=== PATIENT | female | born 1990 | race Caucasian/White ===

== ENCOUNTER 2017-07-28 23:00 | Emergency (ER) | payer OTHER ==
[~2017-07-28] VITALS: Ht 170.2 cm; Wt 125.0 kg
[~2017-07-28 23:00] MED LIST: INSPI INH; MEDR4PAK3 PO; VENTAER INH; Z.0.NO CURRENT MEDS
[2017-07-28 23:06] VITALS: BP 147/85; PULSE 103; RESP 16; TEMP 98.4; O2SAT 100
[2017-07-29 00:32] VITALS: BP 138/72; PULSE 84; RESP 16; O2SAT 97
--- NOTE | 2017-07-29 00:42 | PD ---
HPI Chief Complaint: Chest Pain Time Seen by Provider: 00:42 Travel History International Travel<30 days: No Contact w/Intl Traveler<30days: No Traveled to known affect area: No History of Present Illness HPI 26-year-old female came to the emergency room with history of substernal chest pain that started at 8:30 PM. Patient says the pain is 7 out of 10 and starts at her subxiphoid and goes up to the mid sternum. Laying back makes the pain worse. She vomited couple times. Patient had dinner earlier in the pain started after that. She says she had similar pain about 3 days ago but it lasted for much shorter time and hence she did not come to the emergency room then. Been getting this pain on and off for past 6 months. No radiation of the pain anywhere else. Her vital signs were relatively stable. She is not a smoker. No recent travel history. No past history of DVT or PEs. PFSH Past Medical History Narrative Medical List of her past medical, surgical, social and family history is reviewed from the nursing note. Arthritis: No Asthma: Yes (HX OF WHEN YOUNGER) Autoimmune Disease: No Blood Disorders: No Anxiety: No Depression: No Cancer: No Cardiovascular Problems: Yes High Cholesterol: No Chest Pain: No Congestive Heart Failure: No COPD: No Cerebrovascular Accident: No Diabetes: No Diminished Hearing: No Endocrine: No GERD: No Genitourinary: Yes Headaches: Yes (SEVERE EVERY 2 TO 3 MONTHS) Hepatitis: No Hiatal Hernia: No Hypertension: No Immune Disorder: No Kidney Stones: No Musculoskeletal: Yes Neurologic: Yes Psychiatric: No Reproductive: No Respiratory: Yes Migraines: No Myocardial Infarction: No Renal Failure: No Seizures: Yes (UNKNOWN, ADMITTED 10/21/08 POSSIBLE SEIZURE) Sickle Cell Disease: No Sleep Apnea: No Thyroid Disease: No Ulcer: No ?: Not LMP: 07/14/17 : 0 Para: 0 Past Surgical History Surgical History: No Previous Surgery AICD: No Appendectomy: No Arteriovenous Shunt: No Cardiac Surgery: No Cholecystectomy: No Ear Surgery: No Endocrine Surgery: No Eye Surgery: No Genitourinary Surgery: No Gynecologic Surgery: No Insulin Pump: No Joint Replacement: No Oral Surgery: No Pacemaker: No Thoracic Surgery: No Family History Narrative Family History Mother's to sisters had gallstones at about patient's age. Social History Alcohol Use: No Tobacco Use: No Substance Use: No Allergies-Medications (Allergen,Severity, Reaction): Coded Allergies: No Known Allergies (Verified Adverse Reaction, Unknown, 07/29/17) Comments No known drug allergies. Reported Meds & Prescriptions Reported Meds & Active Scripts Active Protonix (Pantoprazole Sodium) 20 Mg Tab 20 Mg PO DAILY Narrative Medication List of her home medications reviewed from the nursing note. Review of Systems Except as stated in HPI: all other systems reviewed are Neg Cardiovascular: Positive: Chest Pain or Discomfort Physical Exam Narrative GENERAL: Awake, alert, morbidly obese, mild distress SKIN: Focused skin assessment warm/dry. HEAD: Atraumatic. Normocephalic. EYES: Pupils equal and round. No scleral icterus. No injection or drainage. ENT: No nasal bleeding or discharge. Mucous membranes pink and moist. NECK: Trachea midline. No JVD. CARDIOVASCULAR: Regular rate and rhythm. No murmur appreciated. RESPIRATORY: No accessory muscle use. Clear to auscultation. Breath sounds equal bilaterally. GASTROINTESTINAL: Abdomen soft, non-tender, nondistended. Hepatic and splenic margins not palpable. MUSCULOSKELETAL: No obvious deformities. No clubbing. No cyanosis. No edema. NEUROLOGICAL: Awake and alert. No obvious cranial nerve deficits. Motor grossly within normal limits. Normal speech. PSYCHIATRIC: Appropriate mood and affect; insight and judgment normal. Data Data Last Documented VS Orders Orders Electrocardiogram (07/28/17 ) Complete Blood Count With Diff (07/29/17 00:48) Comprehensive Metabolic Panel (07/29/17 00:48) Lipase (07/29/17 00:48) Urinalysis - C+S If Indicated (07/29/17 00:48) Iv Access Insert/Monitor (07/29/17 00:48) Ecg Monitoring (07/29/17 00:48) Oximetry (07/29/17 00:48) Morphine Inj (Morphine Inj) (07/29/17 01:00) Ondansetron Inj (Zofran Inj) (07/29/17 01:00) Sodium Chlor 0.9% 1000 Ml Inj (Ns 1000 M (07/29/17 00:48) Sodium Chloride 0.9% Flush (Ns Flush) (07/29/17 01:00) Ed Poc Ultrasound (07/29/17 00:48) Troponin I (07/29/17 00:48) Pantoprazole (Protonix) (07/29/17 01:00) Us Abdomen Gallbladder (07/29/17 ) Ed Discharge Order (07/29/17 03:06) Labs Laboratory Tests Test 07/29/17 01:05 07/29/17 01:07 White Blood Count 11.5 TH/MM3 Red Blood Count 4.60 MIL/MM3 Hemoglobin 12.0 GM/DL Hematocrit 37.2 % Mean Corpuscular Volume 80.8 FL Mean Corpuscular Hemoglobin 26.0 PG Mean Corpuscular Hemoglobin Concent 32.2 % Red Cell Distribution Width 14.3 % Platelet Count 329 TH/MM3 Mean Platelet Volume 8.0 FL Neutrophils (%) (Auto) 81.3 % Lymphocytes (%) (Auto) 11.0 % Monocytes (%) (Auto) 6.3 % Eosinophils (%) (Auto) 1.0 % Basophils (%) (Auto) 0.4 % Neutrophils # (Auto) 9.4 TH/MM3 Lymphocytes # (Auto) 1.3 TH/MM3 Monocytes # (Auto) 0.7 TH/MM3 Eosinophils # (Auto) 0.1 TH/MM3 Basophils # (Auto) 0.0 TH/MM3 CBC Comment DIFF FINAL Differential Comment Blood Urea Nitrogen 9 MG/DL Creatinine 0.78 MG/DL Random Glucose 121 MG/DL Total Protein 7.8 GM/DL Albumin 3.6 GM/DL Calcium Level 9.0 MG/DL Alkaline Phosphatase 124 U/L Aspartate Amino Transf (AST/SGOT) 94 U/L Alanine Aminotransferase (ALT/SGPT) 72 U/L Total Bilirubin 0.5 MG/DL Sodium Level 139 MEQ/L Potassium Level 4.7 MEQ/L Chloride Level 104 MEQ/L Carbon Dioxide Level 26.8 MEQ/L Anion Gap 8 MEQ/L Estimat Glomerular Filtration Rate 89 ML/MIN Troponin I LESS THAN 0.02 NG/ML Lipase 100 U/L Urine Color YELLOW Urine Turbidity HAZY Urine pH 7.0 Urine Specific Isabella 1.021 Urine Protein TRACE mg/dL Urine Glucose (UA) NEG mg/dL Urine Ketones NEG mg/dL Urine Occult Blood NEG Urine Nitrite NEG Urine Bilirubin NEG Urine Urobilinogen LESS THAN 2.0 MG/DL Urine Leukocyte Esterase SMALL Urine RBC 6 /hpf Urine WBC 6 /hpf Urine Squamous Epithelial Cells 3 /hpf Urine Mucus FEW /lpf Microscopic Urinalysis Comment CULT NOT INDICATED MDM Medical Decision Making Medical Screen Exam Complete: Yes Emergency Medical Condition: Yes Medical Record Reviewed: Yes Interpretation(s) Twelve-lead EKG was reviewed by me. Normal sinus rhythm, normal axis, nonspecific ST-T wave changes. Heart rate of 83 bpm. Differential Diagnosis Acute cholecystitis, acute gastritis,, ACS, nonspecific chest pain Narrative Course 1:34 AM awaiting for blood test results. Awaiting for the chest x-ray. Bedside ultrasound was negative for cholelithiasis. Patient is medicated for pain. 3:06 AM blood test results came back and patient's LFTs were somewhat elevated. Based on this I ordered a formal ultrasound of her gallbladder and liver. The ultrasound report is back and is normal. At this point I'll discharge her home. Patient will go home with a prescription for omeprazole. Procedures Procedure Narrative Emergency department right upper quadrant ultrasound was performed with patient consent. Curvilinear probe was used in the transverse and sagittal views within the right upper quadrant revealing gallbladder without obvious wall thickening, cholecystic fluid, or cholelithiasis. EKG Prior to Arrival: No Diagnosis Primary Impression: Acute gastritis Qualified Codes: K29.00 - Acute gastritis without bleeding Additional Impression: Elevated LFTs Referrals: Primary Care Physician Additional Instructions: You should find a primary care for yourselves and follow-up with them. Do not eat food that is high in acid content. Refrain from taking Tylenol-based medications since your liver function is not 100% normal. Your primary care should repeat the liver function test in another 3-4 weeks. Return to the ER if the condition worsens or any other new concerns. Med/Other Pt SpecificInfo: Prescription(s) given Scripts Pantoprazole (Protonix) 20 Mg Tab 20 MG PO DAILY for Reflux, #30 TAB 0 Refills Prov: Scooter Méndez MD 07/29/17 Disposition: 01 DISCHARGE HOME Condition: Stable Scooter Méndez MD Jul 29, 2017 00:42
[2017-07-29] MEDS ORDERED: SODIUM CHLOR 0.9% 1000 ML INJ 1,000 ML IV SCH (00:48)
[2017-07-29] MEDS ORDERED: SODIUM CHLORIDE 0.9% FLUSH 10 ML FLUSH IV FLUSH PRN (01:00)
[2017-07-29] MEDS ORDERED: MORPHINE SULFATE 4 MG/ML INJ IV PUSH ONE (01:00)
[2017-07-29] MEDS ORDERED: ONDANSETRON HCL 4 MG/2 ML VIAL IVP ONE (01:00)
[2017-07-29] MEDS ORDERED: PANTOPRAZOLE SOD 40 MG DELAYED RELEASE TAB PO ONE (01:00)
[2017-07-29 01:32] LABS: AUTOMATED NEUTROPHIL # 9.4 TH/MM3 (1.8-7.7); BASOPHIL % 0.4 % (0.0-2.0); EOSINOPHIL # 0.1 TH/MM3 (0-0.4); HEMATOCRIT 37.2 % (35.0-46.0); HEMO FLAGS DIFF FINAL; LYMPHOCYTE # 1.3 TH/MM3 (1.0-4.8); MEAN CELL VOLUME 80.8 FL (80.0-100.0); MEAN CORPUSCULAR HGB CONC 32.2 % (32.0-36.0); MONO % 6.3 % (0.0-8.0); NEUT % 81.3 % (16.0-70.0); PLATELET COUNT 329 TH/MM3 (150-450); RED CELL DISTRIBUTION WIDTH 14.3 % (11.6-17.2); WHITE BLOOD COUNT 11.5 TH/MM3 (4.0-11.0)
[2017-07-29 01:33] LABS: BLOOD, URINE NEG (NEG); GLUCOSE,URINE NEG (NEG); KETONE, URINE NEG (NEG); MUCUS URINE FEW /lpf (OCC); NITRITE,URINE NEG (NEG); SQUAMOUS EPITHELIAL CELL URINE 3 /hpf (0-5); URINE COLOR YELLOW (YELLW/STRAW)
[2017-07-29 01:35] LABS: COMMENT (UR) CULT NOT INDICATED; CULTURE IF INDICATED CULT NOT INDICATED
[2017-07-29 01:50] LABS: ALT (GPT) 72 U/L (10-53); ANION GAP 8 MEQ/L (5-15); AST (GOT) 94 U/L (15-37); BICARBONATE 26.8 MEQ/L (21.0-32.0); BLOOD UREA NITROGEN 9 MG/DL (7-18); CHLORIDE 104 MEQ/L (98-107); GLOMERULAR FILTRATION RATE 89 ML/MIN (>89); POTASSIUM 4.7 MEQ/L (3.5-5.1); SODIUM (NA) 139 MEQ/L (136-145)
[2017-07-29 01:56] LABS: ALKALINE PHOSPHATASE 124 U/L (45-117); TOTAL BILIRUBIN ADULT 0.5 MG/DL (0.2-1.0)
--- NOTE | 2017-07-29 03:00 | RADRPT ---
EXAM DATE/TIME: 07/29/2017 02:22 [facility] COMPARISON: No previous studies available for comparison. INDICATIONS : Right upper quadrant pain. MEDICAL HISTORY : Seizures. Asthma. Urinary tract infection. Right upper quadrant pain. SURGICAL HISTORY : None. ENCOUNTER: Initial ACUITY: 3 weeks PAIN SCORE: 1/10 LOCATION: Right upper quadrant MEASUREMENTS: LIVER: 16.6 cm length COMMON DUCT: 6 mm RIGHT KIDNEY: 9.7 x 5.0 x 4.3 cm FINDINGS: LIVER: Normal echotexture without focal lesion or ductal dilatation. COMMON DUCT: No intraluminal mass or stone visualized. GALLBLADDER: Contains no stones, demonstrates no wall thickening or pericholecystic fluid. PANCREAS: The visualized portions are within normal limits. RIGHT KIDNEY: No evidence of hydronephrosis, stone, or mass. CONCLUSION: Normal examination. Man Lei MD on July 29, 2017 at 2:58 Board Certified Radiologist. This report was verified electronically.
[2017-07-29] MEDS ORDERED: PANT20 PO (03:08)
[2017-07-29 03:34] VITALS: BP 121/58; PULSE 59; RESP 16; O2SAT 99
--- NOTE | 2017-07-29 18:51 | EKG ---
Date Performed: 07/28/2017 Time Performed: 23:22:45 PTAGE: 26 years EKG: Sinus rhythm WITH SINUS ARRHYTHMIA NORMAL ECG NO PREVIOUS TRACING DOCTOR: Melissa Winter Interpretating Date/Time 07/29/2017 18:50:41
== END 2017-07-29 03:45 | disposition home or self-care (01) ==
LOC: NEPC 23:00
DX: K29.00 Acute gastritis without bleeding (principal); R79.89 Other specified abnormal findings of blood chemistry; R11.10 Vomiting, unspecified; I49.8 Other specified cardiac arrhythmias; E66.01 Morbid (severe) obesity due to excess calories; J45.909 Unspecified asthma, uncomplicated; Z79.899 Other long term (current) drug therapy
CPT/HCPCS: 76705; 80053; 81001; 83690; 84484; 85025; 93005; 96361; 96374; 96375; 99285; J2270; J2405; J7030

== ENCOUNTER 2018-03-01 00:11 | Emergency (ER) | payer OTHER ==
[~2018-03-01 00:11] MED LIST changes: -INSPI INH; -MEDR4PAK3 PO; +PANT20 PO; -VENTAER INH; -Z.0.NO CURRENT MEDS
[2018-03-01 00:15] VITALS: BP 142/63; PULSE 88; RESP 20; TEMP 98.2; O2SAT 98
[2018-03-01] MEDS ORDERED: SODIUM CHLOR 0.9% 1000 ML INJ 1,000 ML IV ONE ×2 (00:30→01:45)
[2018-03-01] MEDS ORDERED: ONDANSETRON ODT 4 MG TAB PO ONE (00:30)
[2018-03-01 01:03] LABS: AUTOMATED NEUTROPHIL # 8.1 TH/MM3 (1.8-7.7); BASOPHIL # 0.1 TH/MM3 (0-0.2); BASOPHIL % 0.7 % (0.0-2.0); EOSINOPHIL # 0.1 TH/MM3 (0-0.4); EOSINOPHIL % 1.3 % (0.0-4.0); HEMOGLOBIN 11.8 GM/DL (11.6-15.3); LYMPH % 13.3 % (9.0-44.0); LYMPHOCYTE # 1.3 TH/MM3 (1.0-4.8); MEAN CORPUSCULAR HGB CONC 34.6 % (32.0-36.0); MONO % 4.9 % (0.0-8.0); MONOCYTE # 0.5 TH/MM3 (0-0.9); NEUT % 79.8 % (16.0-70.0); PLATELET COUNT 344 TH/MM3 (150-450); RED BLOOD COUNT 4.36 MIL/MM3 (4.00-5.30); RED CELL DISTRIBUTION WIDTH 14.4 % (11.6-17.2); WHITE BLOOD COUNT 10.1 TH/MM3 (4.0-11.0)
[2018-03-01 01:06] LABS: BILIRUBIN, URINE NEG (NEG); BLOOD, URINE NEG (NEG); GLUCOSE,URINE NEG (NEG); KETONE, URINE NEG (NEG); MUCUS URINE FEW /lpf (OCC); NITRITE,URINE NEG (NEG); SQUAMOUS EPITHELIAL CELL URINE 2 /hpf (0-5); URINE COLOR YELLOW (YELLW/STRAW); URINE LEUKOCYTE ESTERASE TRACE (NEG)
[2018-03-01] MEDS ORDERED: METOCLOPRAMIDE HCL 10 MG/2 ML VIAL IV PUSH ONE (01:15)
--- NOTE | 2018-03-01 01:21 | PD ---
HPI Chief Complaint: Abdominal Pain Time Seen by Provider: 00:20 Travel History International Travel<30 days: No Contact w/Intl Traveler<30days: No Traveled to known affect area: No History of Present Illness HPI The patient is a 27 year old female who presents to the [facility] emergency department with a history of upper abdominal pain that she reports began at 7 PM tonight. The patient reports that she last attempted to eat a slice of pizza at 7:30 PM. She reports that the midepigastric abdominal pain is a sharp sensation that radiates to her back. She reports that it has been constant since the onset. She reports that it is severe. She reports she has had associated nausea and vomiting and estimated 20 times. She denies having any diarrhea. She last moved her bowels earlier today. She denies having any blood in her emesis or blood in her stool. She has had similar symptoms in the past and July 2017 and she reports that she was diagnosed with acid reflux. She denies seeing a primary care physician or set key driver. She reports that she takes Prilosec or Tums as needed when she has indigestion. On review of systems otherwise, the patient denies having any known recent fevers, cough, congestion, neck pain, chest pain, shortness of breath, urinary symptoms , or neurologic symptoms. LMP: February 10, 2018 [facility] Past Medical History Narrative Medical The patient's past medical history is significant for headaches, asthma in childhood. Arthritis: No Asthma: Yes (HX OF WHEN YOUNGER) Autoimmune Disease: No Blood Disorders: No Anxiety: No Depression: No Cancer: No Cardiovascular Problems: Yes High Cholesterol: No Chest Pain: No Congestive Heart Failure: No COPD: No Cerebrovascular Accident: No Diabetes: No Diminished Hearing: No Endocrine: No GERD: No Genitourinary: Yes Headaches: Yes (SEVERE EVERY 2 TO 3 MONTHS) Hepatitis: No Hiatal Hernia: No Hypertension: No Immune Disorder: No Kidney Stones: No Musculoskeletal: Yes Neurologic: Yes Psychiatric: No Reproductive: No Respiratory: Yes Immunizations Current: Yes Migraines: No Myocardial Infarction: No Renal Failure: No Seizures: Yes (UNKNOWN, ADMITTED 10/21/08 POSSIBLE SEIZURE) Sickle Cell Disease: No Sleep Apnea: No Thyroid Disease: No Ulcer: No ?: Not LMP: 02/10/18 : 0 Para: 0 Past Surgical History Narrative Surgical The patient's past surgical history is reportedly none. AICD: No Appendectomy: No Arteriovenous Shunt: No Cardiac Surgery: No Cholecystectomy: No Ear Surgery: No Endocrine Surgery: No Eye Surgery: No Genitourinary Surgery: No Gynecologic Surgery: No Insulin Pump: No Joint Replacement: No Oral Surgery: No Pacemaker: No Thoracic Surgery: No Social History Alcohol Use: Yes Tobacco Use: No Substance Use: No Allergies-Medications (Allergen,Severity, Reaction): Coded Allergies: No Known Allergies (Verified Adverse Reaction, Unknown, 03/01/18) Reported Meds & Prescriptions Reported Meds & Active Scripts Active Protonix (Pantoprazole Sodium) 40 Mg Tab 40 Mg PO DAILY Prochlorperazine Supp (Prochlorperazine) 25 Mg Supp 25 Mg RECTAL Q12HR Zofran Odt (Ondansetron Odt) 4 Mg Tab 4 Mg SL Q6HR PRN Review of Systems Except as stated in HPI: all other systems reviewed are Neg General / Constitutional: No: Fever Eyes: No: Visual changes HENT: No: Headaches Cardiovascular: No: Chest Pain or Discomfort Respiratory: No: Shortness of Breath Gastrointestinal: Positive: Nausea, Vomiting, Abdominal Pain, Indigestion, No: Diarrhea, Hematemesis, Hematochezia, Changes in Bowel Habits, Loss of Appetite Genitourinary: No: Dysuria Musculoskeletal: No: Pain Skin: No Rash Neurologic: No: Weakness Psychiatric: No: Depression Endocrine: No: Polydipsia Hematologic/Lymphatic: No: Easy Bruising Physical Exam Narrative General: The patient is a well-developed well-nourished female in no acute distress. Head and Neck exam: Head is normocephalic atraumatic. Eyes: EOMI, pupils are equal round and reactive to light. Nose: Midline septum with pink mucous membranes Mouth: Dentition unremarkable. Moist mucus membranes. Posterior oropharynx is not erythematous. No tonsillar hypertrophy. Uvula midline. Airway patent. Neck: No palpable lymphadenopathy. No nuchal rigidity. No thyromegaly. Cardiovascular: Regular rate and rhythm without murmurs, gallops, or rubs. No pulse deficit to the extremities on simultaneous auscultation and palpation of her radial artery. Lungs: Clear to auscultation bilaterally. No wheezes, rhonchi, or rales. Abdomen: Soft, without tenderness to palpation in all 4 quadrants of the abdomen. No guarding, rebound, or rigidity. Normal bowel sounds are audible. No tenderness on palpation of McBurney's point. Negative Stern sign. The patient denies having any abdominal pain at this time on palpation. Extremities: No clubbing, cyanosis, or edema. 2+ pulses in all 4 extremities. No calf tenderness on palpation. Back: No spinous process tenderness to palpation. No costovertebral angle tenderness to palpation. Neurologic Exam: Grossly nonfocal. Skin Exam: No rash noted. Intact skin that is warm and dry. Data Data Last Documented VS Vital Signs Date Time Temp Pulse Resp B/P (MAP) Pulse Ox O2 Delivery O2 Flow Rate FiO2 03/01/18 00:15 98.2 88 20 142/63 (89) 98 Room Air Orders Orders Electrocardiogram (03/01/18 00:22) Complete Blood Count With Diff (03/01/18 00:22) Comprehensive Metabolic Panel (03/01/18 00:22) C-Reactive Protein (Crp) (03/01/18 00:22) Lipase (03/01/18 00:22) Urinalysis - C+S If Indicated (03/01/18 00:22) Magnesium (Mg) (03/01/18 00:22) Iv Access Insert/Monitor (03/01/18 00:22) Ecg Monitoring (03/01/18 00:22) Oximetry (03/01/18 00:22) Ed Urine Pregnancytest Poc (03/01/18 00:22) Sodium Chlor 0.9% 1000 Ml Inj (Ns 1000 M (03/01/18 00:30) Ondansetron Odt (Zofran Odt) (03/01/18 00:30) Metoclopramide Inj (Reglan Inj) (03/01/18 01:15) Sodium Chlor 0.9% 1000 Ml Inj (Ns 1000 M (03/01/18 01:45) Oral Rehydration (03/01/18 01:38) Pantoprazole Inj (Protonix Inj) (03/01/18 01:45) Prochlorperazine Inj (Compazine Inj) (03/01/18 02:45) Prochlorperazine Inj (Compazine Inj) (03/01/18 05:00) Labs Laboratory Tests Test 03/01/18 00:43 White Blood Count 10.1 TH/MM3 Red Blood Count 4.36 MIL/MM3 Hemoglobin 11.8 GM/DL Hematocrit 34.0 % Mean Corpuscular Volume 78.0 FL Mean Corpuscular Hemoglobin 27.0 PG Mean Corpuscular Hemoglobin Concent 34.6 % Red Cell Distribution Width 14.4 % Platelet Count 344 TH/MM3 Mean Platelet Volume 8.0 FL Neutrophils (%) (Auto) 79.8 % Lymphocytes (%) (Auto) 13.3 % Monocytes (%) (Auto) 4.9 % Eosinophils (%) (Auto) 1.3 % Basophils (%) (Auto) 0.7 % Neutrophils # (Auto) 8.1 TH/MM3 Lymphocytes # (Auto) 1.3 TH/MM3 Monocytes # (Auto) 0.5 TH/MM3 Eosinophils # (Auto) 0.1 TH/MM3 Basophils # (Auto) 0.1 TH/MM3 CBC Comment DIFF FINAL Differential Comment Urine Color YELLOW Urine Turbidity HAZY Urine pH 7.0 Urine Specific Jenners 1.026 Urine Protein NEG mg/dL Urine Glucose (UA) NEG mg/dL Urine Ketones NEG mg/dL Urine Occult Blood NEG Urine Nitrite NEG Urine Bilirubin NEG Urine Urobilinogen 2.0 mg/dL Urine Leukocyte Esterase TRACE Urine RBC 1 /hpf Urine WBC 3 /hpf Urine Squamous Epithelial Cells 2 /hpf Urine Mucus FEW /lpf Microscopic Urinalysis Comment CULT NOT INDICATED Blood Urea Nitrogen 12 MG/DL Creatinine 1.12 MG/DL Random Glucose 137 MG/DL Total Protein 8.1 GM/DL Albumin 3.9 GM/DL Calcium Level 9.2 MG/DL Magnesium Level 1.9 MG/DL Alkaline Phosphatase 96 U/L Aspartate Amino Transf (AST/SGOT) 17 U/L Alanine Aminotransferase (ALT/SGPT) 25 U/L Total Bilirubin 0.3 MG/DL Sodium Level 141 MEQ/L Potassium Level 4.1 MEQ/L Chloride Level 108 MEQ/L Carbon Dioxide Level 22.6 MEQ/L Anion Gap 10 MEQ/L Estimat Glomerular Filtration Rate 58 ML/MIN C-Reactive Protein 0.73 MG/DL Lipase 105 U/L [facility] Medical Decision Making Medical Screen Exam Complete: Yes Emergency Medical Condition: Yes Medical Record Reviewed: Yes Differential Diagnosis Acute pancreatitis, versus peptic ulcer disease, versus gastritis, versus acid reflux, versus biliary colic, versus acute cholecystitis Narrative Course During the course of the patient's emergency department visit, the patient's history, examination, and differential diagnosis were reviewed with the patient. The patient was placed on a cardiac care unit nurse with oximetry and frequent blood pressure monitoring. The patient had IV access obtained and blood work sent for analysis. The patient was initially provided normal saline 1 L IV fluid bolus, Zofran ODT , however the patient continued to have dry heaving. The patient was then given Reglan 5 mg IV. The patient's nausea improved and the patient was started on oral rehydration therapy with Gatorade. After a few sips of Gatorade , the patient reported having another episode of vomiting. Compazine 5 mg IV was administered 1. The patient's laboratory studies were reviewed and remarkable for white count of 10.1, hemoglobin 11.8, platelets 344 with 79.8 neutrophils, CMP is remarkable for a chloride of 108, creatinine 1.12, glucose 137, C-reactive protein 0.73, lipase 105, urinalysis shows 2 urobilinogen, trace leukocyte esterase. A bedside urine test is negative. The patient's electronic medical record was reviewed. When the patient was last seen with similar symptoms the patient underwent an ultrasound that showed no evidence of gallbladder disease. The patient reported improvement in her nausea. The patient was given a second dose of Compazine 5 mg IV to completely resolve the nausea she reports that this antiemetic worked best for her. The patient was continued on sips of oral liquids. The patient will be discharged home to follow-up with a set key driver due to her recurrent symptoms. The patient is given the name of the set key driver on-call, for follow-up. She is instructed to call in the morning for a follow-up appointment. The patient will be discharged home with a prescription for Compazine suppositories, Zofran oral dissolving tablet, and Protonix. The patient is resting comfortably and feels better, is alert and in no distress. The patient's results and examination findings were discussed with the patient. The repeat examination is unremarkable and benign. The history, exam, diagnostic testing, and current condition do not suggest any significant pathology to warrant further testing, continued ED treatment, admission, or surgical evaluation at this point. The vital signs have been stable. The patient does not have uncontrollable pain, intractable vomiting, or other significant symptoms. The patient's condition is stable and appropriate for discharge. The patient will pursue further outpatient evaluation with a primary care physician or other designated or consulting physician as indicated in the discharge instructions. The patient is instructed to report back to the emergency department immediately for reexamination in the mean time if she develops any new or worsening signs or symptoms. The patient expressed understanding and was agreeable with this plan. Diagnosis Primary Impression: Vomiting Qualified Codes: R11.2 - Nausea with vomiting, unspecified Additional Impression: Dyspepsia Referrals: Latesha Cooper MD call for appointment Primary Care Physician 2 days Patient Instructions: Acute Nausea and Vomiting (ED), General Instructions Med/Other Pt SpecificInfo: Prescription(s) given Scripts Pantoprazole (Protonix) 40 Mg Tab 40 MG PO DAILY for Reflux, #30 TAB 0 Refills Prov: Nikki Rodriguez MD 03/01/18 Prochlorperazine Supp (Prochlorperazine Supp) 25 Mg Supp 25 MG RECTAL Q12HR for Nausea/Vomiting, #2 SUPP 0 Refills Prov: Nikki Rodriguez MD 03/01/18 Ondansetron Odt (Zofran Odt) 4 Mg Tab 4 MG SL Q6HR Y for Nausea/Vomiting, #7 TAB 0 Refills Prov: Nikki Rodriguez MD 03/01/18 Disposition: 01 DISCHARGE HOME Condition: Stable Nikki Rodriguez MD Mar 01, 2018 01:21
[2018-03-01 01:28] LABS: ALKALINE PHOSPHATASE 96 U/L (45-117); TOTAL BILIRUBIN ADULT 0.3 MG/DL (0.2-1.0); TOTAL PROTEIN 8.1 GM/DL (6.4-8.2)
[2018-03-01 01:30] LABS: ALBUMIN 3.9 GM/DL (3.4-5.0); ALT (GPT) 25 U/L (10-53); AST (GOT) 17 U/L (15-37); BICARBONATE 22.6 MEQ/L (21.0-32.0); BLOOD UREA NITROGEN 12 MG/DL (7-18); C-REACTIVE PROTEIN 0.73 MG/DL (0.00-0.30); CALCIUM 9.2 MG/DL (8.5-10.1); CHLORIDE 108 MEQ/L (98-107); CREATININE 1.12 MG/DL (0.50-1.00); GLOMERULAR FILTRATION RATE 58 ML/MIN (>89); GLUCOSE,RANDOM 137 MG/DL (74-106); MAGNESIUM 1.9 MG/DL (1.5-2.5); SODIUM (NA) 141 MEQ/L (136-145)
[2018-03-01] MEDS ORDERED: PANTOPRAZOLE SODIUM 40 MG VIAL IV PUSH ONE (01:45)
[2018-03-01] MEDS ORDERED: PROCHLORPERAZINE INJ 10 MG/2 ML VIAL IV PUSH ONE ×2 (02:45→05:00)
[2018-03-01] MEDS ORDERED: PROC25SU22 RECTAL (05:14)
[2018-03-01] MEDS ORDERED: ZOFR4TAB3 SL (05:14)
[2018-03-01] MEDS ORDERED: PROT40TA PO (05:14)
--- NOTE | 2018-03-01 23:01 | EKG ---
Date Performed: 03/01/2018 Time Performed: 01:22:46 PTAGE: 27 years EKG: Sinus rhythm LOW QRS VOLTAGE IN PRECORDIAL LEADS BORDERLINE ECG INTERPRETATION BASED ON A DEFAULT AGE OF 39 YEARS PREVIOUS TRACING : 07/28/2017 23.22 DOCTOR: Lore Barrett Interpretating Date/Time 03/01/2018 22:54:41
== END 2018-03-01 05:56 | disposition home or self-care (01) ==
LOC: NEPC 00:11
DX: R11.2 Nausea with vomiting, unspecified (principal); K21.9 Gastro-esophageal reflux disease without esophagitis; R94.31 Abnormal electrocardiogram [ECG] [EKG]
CPT/HCPCS: 80053; 81001; 83690; 83735; 84703; 85025; 86140; 93005; 96361; 96374; 96375; 96376; 99284; C9113; J0780; J2765; J7030

== ENCOUNTER 2018-03-12 02:50 | Inpatient (IN) ==
[2018-03-14] MEDS ORDERED: Chlorhexidine Gluconate 2% 1 Pack (2 Cloths) TOPICAL PRN (00:01)
[2018-03-14] MEDS ORDERED: Sodium Chlor 0.9% Inj 500 ML IV.SIG PRN (00:01)
[2018-03-14] MEDS: Morphine Inj 4 MG/ML Vial IV.PUSH PRN ×3 (06:20→15:46)
[2018-03-14 08:28] LABS: Baso % (Auto) 0.6 % (0.0-2.0); Eos # (Auto) 0.3 th/mm3 (0.0-0.4); Eos % (Auto) 4.2 % (0.0-4.0); Hematocrit 32.7 % (35.0-46.0); Hemoglobin 10.5 gm/dL (11.6-15.3); Lymph # (Auto) 1.6 th/mm3 (1.0-4.8); Lymph % (Auto) 25.2 % (9.0-44.0); Mean Corpuscular Hemoglobin 25.5 pg (27.0-34.0); Mean Corpuscular Volume 79.5 fL (80.0-100.0); Mean Platelet Volume 7.7 fL (7.0-11.0); Mono # (Auto) 0.5 th/mm3 (0.0-0.9); Mono % (Auto) 8.1 % (0.0-8.0); Neut # (Auto) 3.8 th/mm3 (1.8-7.7); Neut % (Auto) 61.9 % (16.0-70.0); Platelet Count 297 th/mm3 (150-450); Red Blood Count 4.11 mil/mm3 (4.00-5.30); Red Cell Distribution Width 14.6 % (11.6-17.2); White Blood Count 6.2 th/mm3 (4.0-11.0)
[2018-03-14 08:52] LABS: Albumin 2.8 g/dL (3.4-5.0); Anion Gap 10 meq/L (5-15); Aspartate Aminotransferase 39 U/L (15-37); Blood Urea Nitrogen 6 mg/dL (7-18); Calcium 7.9 mg/dL (8.5-10.1); Carbon Dioxide 23.1 meq/L (21.0-32.0); Chloride 109 meq/L (98-107); Glomerular Filtration Rate Greater Than 89 mL/min (>89); Glucose,Random 85 mg/dL (74-106); Lipase 125 U/L (73-393); Potassium 3.9 meq/L (3.5-5.1); Sodium 142 meq/L (136-145)
[2018-03-14 08:56] LABS: Alanine Aminotransferase 132 U/L (10-53); Alkaline Phosphatase 100 U/L (45-117); Total Protein 6.3 g/dL (6.4-8.2)
--- NOTE | 2018-03-14 13:11 | P.PNIM ---
Subjective Interval history: No new complaints. Pt is tolerating full liquids. Physical Exam Vital signs: Vital Signs 03/14/18 04:00 03/14/18 08:00 03/14/18 12:00 Temperature 97.7 F 98.2 F 98.9 F Pulse Rate 79 78 64 Respiratory Rate 18 18 18 Blood Pressure 128/69 148/79 H 133/83 Pulse Oximetry 98 99 98 Intake & Output 03/13/18 03/14/18 03/14/18 18:59 06:59 18:59 Intake Total 360 / 360 Balance 360 / 360 Weight 125.5 kg 125.5 kg Intake: Oral 360 / 360 Other: # Voids 1 Date of Last Bowel Movement 03/13/18 # Bowel Movements 0 Narrative: General: No acute distress, alert and oriented 3 HEENT: Mucous membranes moist Neck: Supple Cardiovascular: Regular Pulmonary: Clear sounds bilateral Abdomen: Positive bowel sounds 4, no guarding, rebound, rigidity Extremities: No clubbing, cyanosis, or edema Neuro: No focal deficits Results - Labs CBC & Chem 7: 03/15/18 03:54 03/15/18 03:54 Laboratory Results - last 24 hr 03/12/18 03/12/18 03/12/18 03:25 03:25 03:25 WBC 6.8 RBC 4.55 Hgb 11.9 Hct 35.7 MCV 78.5 L MCH 26.1 L MCHC 33.3 RDW 14.6 Plt Count 364 MPV 7.8 Neut % (Auto) 70.4 H Lymph % (Auto) 19.4 [place] % (Auto) 8.5 H Eos % (Auto) 0.9 Baso % (Auto) 0.8 Neut # (Auto) 4.8 Lymph # (Auto) 1.3 [place] # (Auto) 0.6 Eos # (Auto) 0.1 Baso # (Auto) 0.1 CBC Comment DIFF FINAL WBC Differential Differential Comment Sodium 139 Potassium 4.1 Chloride 106 Carbon Dioxide 23.0 Anion Gap 10 BUN 10 Creatinine 0.82 Estimated GFR Random Glucose 115 H Calcium 8.7 Total Bilirubin 1.9 H AST 250 H ALT 211 H Alkaline Phosphatase 147 H Total Protein 8.1 Albumin 3.7 Triglycerides Cholesterol LDL Cholesterol HDL Cholesterol Cholesterol/HDL Ratio Lipase 3702 H Urine Color Steffany Urine Turbidity HAZY H Urine pH 7.0 Ur Specific [place] 1.021 Urine Protein NEG Urine Glucose (UA) NEG Urine Ketones NEG Urine Occult Blood NEG Urine Nitrite NEG Urine Bilirubin NEG Urine Urobilinogen 4.0 OR GREATER H Ur Leukocyte Esterase SMALL H Urine RBC 2 Urine WBC 11 H Ur Squamous Epith Cells 4 Urine Bacteria RARE H Urine Mucus FEW H Micro UA Comment CULTURE INDICATED Hepatitis A IgM Ab Hep Bs Antigen Hep B Core IgM Ab Hep C IgG Ab 03/12/18 03/13/18 03/13/18 12:13 06:07 06:07 WBC 6.7 RBC 4.02 Hgb 10.2 L Hct 32.0 L MCV 79.7 L MCH 25.4 L MCHC 31.8 L RDW 14.9 Plt Count 293 MPV 7.8 Neut % (Auto) 58.2 Lymph % (Auto) 30.0 [place] % (Auto) 8.1 H Eos % (Auto) 2.9 Baso % (Auto) 0.8 Neut # (Auto) 3.9 Lymph # (Auto) 2.0 [place] # (Auto) 0.5 Eos # (Auto) 0.2 Baso # (Auto) 0.1 CBC Comment DIFF FINAL WBC Differential Differential Comment Sodium 143 Potassium 4.0 Chloride 110 H Carbon Dioxide 25.3 Anion Gap 8 BUN 8 Creatinine 0.78 Estimated GFR 88 L Random Glucose 86 Calcium 8.1 L Total Bilirubin 0.5 AST 108 H ALT 199 H Alkaline Phosphatase 109 Total Protein 6.2 L D Albumin 2.8 L D Triglycerides 43 Cholesterol 107 L LDL Cholesterol 50 HDL Cholesterol 48.7 Cholesterol/HDL Ratio 2.19 Lipase 1159 H Urine Color Urine Turbidity Urine pH Ur Specific [place] Urine Protein Urine Glucose (UA) Urine Ketones Urine Occult Blood Urine Nitrite Urine Bilirubin Urine Urobilinogen Ur Leukocyte Esterase Urine RBC Urine WBC Ur Squamous Epith Cells Urine Bacteria Urine Mucus Micro UA Comment Hepatitis A IgM Ab Hep Bs Antigen Hep B Core IgM Ab Hep C IgG Ab 03/13/18 03/14/18 03/14/18 12:51 07:16 07:16 WBC 6.2 RBC 4.11 Hgb 10.5 L Hct 32.7 L MCV 79.5 L MCH 25.5 L MCHC 32.0 RDW 14.6 Plt Count 297 MPV 7.7 Neut % (Auto) 61.9 Lymph % (Auto) 25.2 [place] % (Auto) 8.1 H Eos % (Auto) 4.2 H Baso % (Auto) 0.6 Neut # (Auto) 3.8 Lymph # (Auto) 1.6 [place] # (Auto) 0.5 Eos # (Auto) 0.3 Baso # (Auto) 0.0 CBC Comment WBC Differential . Differential Comment Auto diff final Sodium 142 Potassium 3.9 Chloride 109 H Carbon Dioxide 23.1 Anion Gap 10 BUN 6 L Creatinine 0.68 Estimated GFR Random Glucose 85 Calcium 7.9 L Total Bilirubin 0.5 AST 39 H ALT 132 H Alkaline Phosphatase 100 Total Protein 6.3 L Albumin 2.8 L Triglycerides Cholesterol LDL Cholesterol HDL Cholesterol Cholesterol/HDL Ratio Lipase 125 Urine Color Urine Turbidity Urine pH Ur Specific [place] Urine Protein Urine Glucose (UA) Urine Ketones Urine Occult Blood Urine Nitrite Urine Bilirubin Urine Urobilinogen Ur Leukocyte Esterase Urine RBC Urine WBC Ur Squamous Epith Cells Urine Bacteria Urine Mucus Micro UA Comment Hepatitis A IgM Ab NONREACTIVE Hep Bs Antigen NONREACTIVE Hep B Core IgM Ab NONREACTIVE Hep C IgG Ab NONREACTIVE Assessment and Plan - Plan (1) Acute gallstone pancreatitis ICD Codes: K85.10 - Biliary acute pancreatitis without necrosis or infection Status: Acute Plan: Acute gallstone pancreatitis - Pt is a 27 y/o female who was admitted to the ED on 03/12/18 with complaints episodic N/V and abdominal pain. Labs on admission with elevated LFTs AST 250, ALT 211, ALP 147, bili 1.9, high lipase 3702 - CT Abd/pelvis (03/12/18) --> No acute findings on abdomen and pelvic CT. Multiple gallstones. - MRCP (03/12/18) --> Cholelithiasis with moderate gallbladder distention. Otherwise, no definitive evidence for acute cholecystitis. No biliary ductal dilatation or focal abnormality in the common bile duct. - Comgmt with GI and General surgery - PRN morphine for pain - General Surgery recommending laparoscopic cholecystectomy likely as an inpatient. Possible Thursday/Thursday. - Repeat LFTs are improving. Pt likely passed a gallstone. - Repeat labs in AM - DVT prophylaxis 03/14/18 - advance to soft diet - NPO after MN for possible cholecystectomy
[2018-03-15] MEDS: Morphine Inj 4 MG/ML Vial IV.PUSH PRN ×4 (04:26→21:17)
[2018-03-15 04:37] LABS: INR 1.1 Ratio; Prothrombin Time 10.7 sec (9.8-11.6)
[2018-03-15 04:40] LABS: Alanine Aminotransferase 100 U/L (10-53); Albumin 2.8 g/dL (3.4-5.0); Anion Gap 9 meq/L (5-15); Aspartate Aminotransferase 19 U/L (15-37); Blood Urea Nitrogen 8 mg/dL (7-18); Calcium 8.4 mg/dL (8.5-10.1); Carbon Dioxide 23.1 meq/L (21.0-32.0); Chloride 108 meq/L (98-107); Glomerular Filtration Rate Greater Than 89 mL/min (>89); Glucose,Random 97 mg/dL (74-106); Magnesium 1.9 mg/dL (1.5-2.5); Sodium 140 meq/L (136-145)
[2018-03-15 04:42] LABS: Baso % (Auto) 0.6 % (0.0-2.0); Eos # (Auto) 0.3 th/mm3 (0.0-0.4); Eos % (Auto) 3.5 % (0.0-4.0); Hematocrit 33.1 % (35.0-46.0); Hemoglobin 10.6 gm/dL (11.6-15.3); Lymph # (Auto) 1.9 th/mm3 (1.0-4.8); Lymph % (Auto) 23.8 % (9.0-44.0); Mean Corpuscular Hemoglobin 25.4 pg (27.0-34.0); Mean Corpuscular Volume 79.6 fL (80.0-100.0); Mean Platelet Volume 7.7 fL (7.0-11.0); Mono # (Auto) 0.6 th/mm3 (0.0-0.9); Mono % (Auto) 7.9 % (0.0-8.0); Neut # (Auto) 5.2 th/mm3 (1.8-7.7); Neut % (Auto) 64.2 % (16.0-70.0); Platelet Count 299 th/mm3 (150-450); Red Blood Count 4.15 mil/mm3 (4.00-5.30); Red Cell Distribution Width 15.1 % (11.6-17.2); White Blood Count 8.1 th/mm3 (4.0-11.0)
[2018-03-15 04:43] LABS: Alkaline Phosphatase 93 U/L (45-117); Total Protein 6.3 g/dL (6.4-8.2)
[2018-03-15] MEDS: Sod Chloride 0.9% Inj 1,000 ML IV.CONT SCH (06:57)
--- NOTE | 2018-03-15 11:29 | ECG ---
Date Performed: 03/14/2018 Time Performed: 13:47:53 PTAGE: 27 years EKG: Sinus rhythm WITH SINUS ARRHYTHMIA LOW QRS VOLTAGE IN PRECORDIAL LEADS BORDERLINE ECG PREVIOUS TRACING : 03/01/2018 01.22 Since the previous tracing, no significant change noted DOCTOR: Saad Ybarra Interpretating Date/Time 03/15/2018 11:27:23
[2018-03-15] MEDS ORDERED: Glycopyrrolate Inj 1 MG/5 ML Syringe IV.PUSH ONE (12:00)
[2018-03-15] MEDS ORDERED: Lidocaine PF 1% Inj 5 ML Syringe INFILTRATN ONE (12:00)
[2018-03-15] MEDS ORDERED: Neostigmine Inj 5 MG/5 ML Syringe IV.PUSH ONE (12:00)
[2018-03-15] MEDS ORDERED: Bupivacaine/Epinephrine Inj 0.25% 50 ML Vial ONE (12:09)
--- NOTE | 2018-03-15 12:30 | P.PNGS ---
Subjective Interval history: Intermittent pain over the weekend but overall feels better. Ate dinner last night. Physical Exam Vital signs: Vital Signs 03/14/18 16:00 03/14/18 19:25 03/15/18 00:07 Temperature 98.7 F 97.6 F 97.9 F Pulse Rate 66 72 70 Respiratory Rate 18 18 18 Blood Pressure 130/71 140/87 126/65 Pulse Oximetry 98 97 98 03/15/18 04:17 Temperature 98.1 F Pulse Rate 61 Respiratory Rate 17 Blood Pressure 123/64 Pulse Oximetry 97 Intake & Output 03/14/18 03/15/18 03/15/18 18:59 06:59 18:59 Intake Total 480 / 480 0 / 0 Balance 480 / 480 0 / 0 Weight 125.5 kg Intake: Oral 480 / 480 0 / 0 Other: # Voids 3 1 Date of Last Bowel Movement 03/13/18 03/13/18 # Bowel Movements 0 - Constitutional no acute distress - Routine Abdominal Exam Present: soft. Absent: tenderness, distended Assessment and Plan - Assessment (1) Acute gallstone pancreatitis Code(s): K85.10 - Biliary acute pancreatitis without necrosis or infection Status: Acute - Plan MRCP Thursday negative for common duct stones. Labs trended to normal. Proceed to OR for laparoscopic cholecystectomy, possible open. Discussed in detail with the patient and her mother. She desires to proceed.
--- NOTE | 2018-03-15 12:48 | P.PNIM ---
Subjective Interval history: Pt down for Lap jean carlos today with Dr. Hernandez Physical Exam Vital signs: Vital Signs 03/14/18 16:00 03/14/18 19:25 03/15/18 00:07 Temperature 98.7 F 97.6 F 97.9 F Pulse Rate 66 72 70 Respiratory Rate 18 18 18 Blood Pressure 130/71 140/87 126/65 Pulse Oximetry 98 97 98 03/15/18 04:17 Temperature 98.1 F Pulse Rate 61 Respiratory Rate 17 Blood Pressure 123/64 Pulse Oximetry 97 Intake & Output 03/14/18 03/15/18 03/15/18 18:59 06:59 18:59 Intake Total 480 / 480 0 / 0 Balance 480 / 480 0 / 0 Weight 125.5 kg Intake: Oral 480 / 480 0 / 0 Other: # Voids 3 1 Date of Last Bowel Movement 03/13/18 03/13/18 # Bowel Movements 0 Results - Labs CBC & Chem 7: 03/15/18 03:54 03/15/18 03:54 Laboratory Results - last 24 hr 03/14/18 03/15/18 03/15/18 07:16 03:54 03:54 WBC 8.1 RBC 4.15 Hgb 10.6 L Hct 33.1 L MCV 79.6 L MCH 25.4 L MCHC 32.0 RDW 15.1 Plt Count 299 MPV 7.7 Neut % (Auto) 64.2 Lymph % (Auto) 23.8 [place] % (Auto) 7.9 Eos % (Auto) 3.5 Baso % (Auto) 0.6 Neut # (Auto) 5.2 Lymph # (Auto) 1.9 [place] # (Auto) 0.6 Eos # (Auto) 0.3 Baso # (Auto) 0.0 WBC Differential . Differential Comment Auto diff final PT 10.7 INR 1.1 Sodium Potassium Chloride Carbon Dioxide Anion Gap BUN Creatinine Estimated GFR Greater than 89 Random Glucose Calcium Magnesium Total Bilirubin AST ALT Alkaline Phosphatase Total Protein Albumin 03/15/18 03:54 WBC RBC Hgb Hct MCV MCH MCHC RDW Plt Count MPV Neut % (Auto) Lymph % (Auto) [place] % (Auto) Eos % (Auto) Baso % (Auto) Neut # (Auto) Lymph # (Auto) [place] # (Auto) Eos # (Auto) Baso # (Auto) WBC Differential Differential Comment PT INR Sodium 140 Potassium 4.0 Chloride 108 H Carbon Dioxide 23.1 Anion Gap 9 BUN 8 Creatinine 0.67 Estimated GFR Greater than 89 Random Glucose 97 Calcium 8.4 L Magnesium 1.9 Total Bilirubin 0.4 AST 19 ALT 100 H Alkaline Phosphatase 93 Total Protein 6.3 L Albumin 2.8 L Assessment and Plan - Assessment (1) Acute gallstone pancreatitis Code(s): K85.10 - Biliary acute pancreatitis without necrosis or infection Status: Acute Plan: Acute gallstone pancreatitis - Pt is a 27 y/o female who was admitted to the ED on 03/12/18 with complaints episodic N/V and abdominal pain. Labs on admission with elevated LFTs AST 250, ALT 211, ALP 147, bili 1.9, high lipase 3702 - CT Abd/pelvis (03/12/18) --> No acute findings on abdomen and pelvic CT. Multiple gallstones. - MRCP (03/12/18) --> Cholelithiasis with moderate gallbladder distention. Otherwise, no definitive evidence for acute cholecystitis. No biliary ductal dilatation or focal abnormality in the common bile duct. - Comgmt with GI and General surgery - PRN morphine for pain - General Surgery recommending laparoscopic cholecystectomy likely as an inpatient. Possible Thursday/Thursday. - Repeat LFTs are improving. Pt likely passed a gallstone. - Pt undergoing the Lap cholecystectomy today with Dr. Hernandez - DVt prophylaxis - Attending Attestation Patient examined. Assessment and plan formulated with Nettie Silver PA-C. I agree with the above.
[2018-03-15] MEDS ORDERED: ceFAZolin 2 GM Premix Inj 2 GM/50 ML PIGGYBACK IV.SIG ONE (13:09)
--- NOTE | 2018-03-15 13:51 | P.OP ---
- Preoperative Diagnosis (1) Acute gallstone pancreatitis Date of procedure: 03/15/18 Procedure: Laparoscopic cholecystectomy Anesthesia: AKASH Surgeon: Ghassan Hernandez MD Chimney Mechanic: Serene Dickens Estimated blood loss (mL): 10 Pathology: other (Gallbladder) Operation and Findings: Complications: None apparent EBL: 10 cc Operative findings: Multiple small gallstones impacted in the gallbladder neck and proximal cystic duct. The stones were milked back into the gallbladder and clips placed on the distal duct. Procedure in detail: The patient was taken to the operating room and placed in the supine position. General endotracheal anesthesia was induced. The abdomen was prepped and draped in usual sterile fashion and a surgical timeout was performed to verify correct patient procedure and site. Appropriate perioperative antibiotics were administered. Local anesthetic was injected in the skin and subcutaneous tissue superior to the umbilicus and a 5 mm incision performed. The abdomen was entered using the Optiview 5 mm trocar with direct laparoscopic visualization. The abdomen was then insufflated to 15 mmHg with CO2 gas which the patient tolerated well. Next a 12 mm port was placed in the epigastrium and two 5 mm ports in the right upper quadrant and right lateral abdomen. The patient was placed in reverse Trendelenburg position and turned slightly to the left. Attention was turned to the right upper quadrant and the dome of the gallbladder was grasped and retracted cephalad. The infundibulum was retracted laterally to expose Calot's triangle. Blunt dissection and judicious use of electrocautery was used to expose the cystic duct and the cystic artery directly entering the gallbladder. Two clips were placed proximally on each of these structures and one distally and they were transected. The gallbladder was then removed from the liver bed using electrocautery. Hemostasis was achieved. The gallbladder was then removed from the abdomen using an Endo Catch bag. The clips were in place on the cystic duct and cystic artery stumps with no bleeding or bile leakage. At this point, the abdomen was allowed to desufflate and trochars were removed. The fascia at the 12 mm port site was closed with 0 Vicryl suture using the fascial closure device. Skin was closed with subcuticular 4-0 Monocryl as well as Dermabond. The patient tolerated the procedure well and was extubated and taken to PACU in stable condition. All sponge and instrument counts were correct.
[2018-03-15] MEDS ORDERED: *morphine SULFATE 4 MG/ML PERIprocedure ONLY ONE ×2 (14:10→14:14)
[2018-03-15] MEDS ORDERED: *Meperidine Inj 25 MG/ML Vial PERIprocedural Use ONLY ONE (14:25)
[2018-03-16] MEDS: Morphine Inj 4 MG/ML Vial IV.PUSH PRN ×2 (02:57→09:26)
--- NOTE | 2018-03-16 11:36 | P.DS ---
<Nettie Silver E - Last Filed: 03/16/18 11:28> Date of admission: 03/12/18 04:23 Primary care physician: No Primary Care Physician Attending physician on discharge: Chang Butler Anticipated date of discharge: 03/16/18 Brief History from admission: Pt is 27yo female having intermittent abdomen pain with n/v since July 2017. At least 5 episodes. Presents again with epigastric and midback pain with n/v. W/up concerning for gallstone pancreatitis. Given morphine and admitted for further evaluation. DS: Diagnosis - Discharge Diagnosis (1) Acute gallstone pancreatitis Status: Acute DS: Medications - Discharge Medications Prescriptions: hydrocodone-acetaminophen 1 tab PO Q4H PRN #12 tab PRN Reason: Pain ketorolac 10 mg PO Q6H PRN #20 tab PRN Reason: Pain DS: Summary Hospital Course: Acute gallstone pancreatitis - Pt is a 27 y/o female who was admitted to the ED on 03/12/18 with complaints episodic N/V and abdominal pain. Labs on admission with elevated LFTs AST 250, ALT 211, ALP 147, bili 1.9, high lipase 3702. CT Abd/pelvis (03/12/18) --> No acute findings on abdomen and pelvic CT with multiple gallstones. MRCP (03/12/18 ) --> Cholelithiasis with moderate gallbladder distention. Otherwise, no definitive evidence for acute cholecystitis. No biliary ductal dilatation or focal abnormality in the common bile duct. GI and General surgery were consulted at admission. General Surgery recommending laparoscopic cholecystectomy once pancreatitis improved. Repeat LFTs are improving. It was felt that the pt likely passed a gallstone. Pt underwent Lap cholecystectomy on 03/15/[address] Hernandez. Pts diet advanced post- operatively and toelrating oral intake prior to discharge. A prescription for Ketoralac was written by surgery for discharge. Pt will need to followup with General Surgery in 2 weeks Pt will need to followup with her PCP in 1 week - Time Spent with Patient Total time spent providing and/or coordinating discharge services: Exam Vital signs: Vital Signs 03/15/18 12:00 03/15/18 14:00 03/15/18 14:15 Temperature 98.3 F 98.0 F Pulse Rate 80 78 71 Respiratory Rate 18 16 16 Blood Pressure 141/77 H 136/63 144/73 H Pulse Oximetry 95 100 100 03/15/18 15:00 03/15/18 15:15 03/15/18 16:00 Temperature 85 F L 97.4 F L Pulse Rate 59 L 61 61 Respiratory Rate 16 16 19 Blood Pressure 134/66 133/66 124/73 Pulse Oximetry 100 100 100 03/15/18 22:00 03/16/18 00:00 03/16/18 03:39 Temperature 99.1 F 98.5 F 98.8 F Pulse Rate 95 H 77 71 Respiratory Rate 20 19 15 Blood Pressure 130/60 118/59 L 115/59 L Pulse Oximetry 98 97 98 Intake & Output 03/15/18 03/16/18 03/16/18 18:59 06:59 18:59 Intake Total 2360 / 2360 900 / 900 Output Total 24 1000 / 1000 Balance 2336 / 2336 -100 / -100 Intake: Oral 360 / 360 900 / 900 Anesthesia Amount 1999 / 1999 Output: Urine 4 / 4 1000 / 1000 Estimated Blood Loss Other: Date of Last Bowel Movement 03/13/18 # Bowel Movements 0 1 Narrative: General: NAD, AAOx3 Chest: CTA Cardiac: Regular Abd: +BS, soft, incisions are c/d/i Ext: No edema Results Procedures completed during hospitalization: Lap Joy on 03/15/[address] Hernandez <Chang Butler - Last Filed: 03/28/18 23:15> Date of admission: 03/12/18 04:23 Primary care physician: No Primary Care Physician DS: Diagnosis - Discharge Diagnosis (1) Acute gallstone pancreatitis Status: Acute DS: Summary Hospital Course: Patient examined. Assessment and plan formulated with Nettie Silver PA-C. I agree with the above. - Time Spent with Patient Total time spent providing and/or coordinating discharge services: Greater than 30 minutes Discharge Plan - Discharge Order Discharge Orders: Discharge Order (Routine); Ordered 03/16/18 Ordered By: Nettie Silver General Surgery Clear for Discharge (Routine); Ordered 03/15/18 Ordered By: Ghassan Hernandez - Discharge Details Anticipated Discharge Date: 03/16/18 - Physicians Team Primary Care Provider: Primary Care Adilene,No Attending Provider: Nigel Downs Other Providers: Ghassan Hernandez MD ; Glenna Ayala MD - Rxs /Orders / Referrals /Forms Prescriptions: New hydrocodone-acetaminophen 5-325 mg Tablet 1 tab PO Q4H PRN (Reason: Pain) Qty: 12 RF: 0 ketorolac 10 mg Tablet 10 mg PO Q6H PRN (Reason: Pain) Qty: 20 RF: 0 Continue ondansetron [Zofran ODT] 4 mg Tablet,Disintegrating 4 mg PO Q6-8H PRN (Reason: Nausea And Vomiting) pantoprazole [Protonix] 40 mg Tablet,Delayed Release (Dr/Ec) 40 mg PO DAILY Discontinued prochlorperazine 25 mg Suppository 25 suppositor [place] Q12HR PRN (Reason: Nausea And Vomiting) Referrals: Ghassan Hernandez MD [GENERAL SURGERY] - See Instructions (Followup with Dr. Hernandez in 2 weeks, call for an appt) Primary Care Isela Head [Primary Care Provider] - See Instructions Forms: Work Release/Restrictions - Discharge Instructions Additional Instructions: FOLLOWUP WITH DOCTORS ORDERED. CALL TO VERIFY APPOINTMENTS.
== END 2018-03-16 16:47 | disposition home or self-care (01) ==
LOC: N06 04:23
PROVIDERS: ADMIT Hospitalist; ATTEND Hospitalist